=== PATIENT | female | born 1965 | race Caucasian/White ===

== ENCOUNTER 2020-01-14 02:39 | Emergency (ER) | payer BC, OTHER ==
[~2020-01-14] VITALS: Ht 165 cm; Wt 80.0 kg
[2020-01-14] MEDS ORDERED: LACTATED RINGERS 1,000 ML IV ONE (04:02)
[2020-01-14] MEDS ORDERED: LIDOCAINE 1% INJ 20 ML 20 ML VIAL INJ ONE (04:30)
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
[2020-01-14 05:06] VITALS: BP 122/70
== END 2020-01-14 05:12 | disposition home or self-care (01) ==
LOC: ER 02:41
DX: S01.112A Laceration without foreign body of left eyelid and periocular area, initial encounter (principal); S09.90XA Unspecified injury of head, initial encounter; Y04.0XXA Assault by unarmed brawl or fight, initial encounter
CPT/HCPCS: 12011